=== PATIENT | female | born 2000 | race Two or more races ===

== ENCOUNTER 2022-01-15 06:48 | Inpatient (IN) | payer BC, MEDICAID ==
[~2022-01-15] VITALS: Ht 167.6 cm; Wt 59.4 kg
[2022-01-15 07:22] LABS: BASOPHILS % (AUTO) 0.7 % (0.0-2.0); EOSINOPHILS % (AUTO) 1.1 % (1.0-6.0); HEMATOCRIT 32.7 % (36-46); HEMOGLOBIN 10.9 g/dL (12.0-16.0); LYMPHOCYTES # (AUTO) 1.7 K/uL (1.0-4.8); LYMPHOCYTES % (AUTO) 20.1 % (22.0-44.0); MEAN CORPUSCULAR HEMOGLOBIN 24.7 pg (26.0-34.0); MEAN CORPUSCULAR HGB CONC 33.2 G/dL (31.0-37.0); MEAN CORPUSCULAR VOLUME 74 fL (80-100); MONOCYTES # (AUTO) 0.5 K/uL (0.1-1.0); MONOCYTES % (AUTO) 6.3 % (2.0-9.0); NEUTROPHILS # (AUTO) 6.2 K/uL (1.8-7.7); NEUTROPHILS % (AUTO) 71.8 % (40.0-70.0); PLATELET COUNT (AUTO) 299 K/uL (150-450); RED CELL DISTRIBUTION WIDTH 15.4 % (11.5-14.5)
[2022-01-15 07:41] LABS: ANION GAP 7 mmol/L (8-16); CALCIUM, TOTAL 8.9 mg/dL (8.8-10.5); CARBON DIOXIDE 25 mmol/L (22-29); CHLORIDE 107 mmol/L (98-107); CREATININE 0.74 mg/dL (0.60-1.30); GLOMERULAR FILTR. RATE CALC > 60 mL/min (>60); GLUCOSE,RANDOM 98 mg/dL (70-110); POTASSIUM 3.7 mmol/L (3.5-5.1); SODIUM SERUM 139 mmol/L (136-145); UREA NITROGEN, BLOOD 10 mg/dL (7-18)
[2022-01-15 07:45] LABS: ALANINE AMINOTRANSFERASE 16 U/L (12-78); ALBUMIN 3.7 g/dL (3.4-5.0); ALKALINE PHOSPHATASE 85 U/L (46-116); ASPARTATE AMINOTRANSFERASE 14 U/L (15-37); TOTAL PROTEIN, SERUM 7.2 g/dL (6.4-8.2)
[2022-01-15 07:50] LABS: COVID AG,FIA SOURCE NASAL SWAB
[2022-01-15 07:53] LABS: SALICYLATE < 0.2 mg/dL (2.8-20.0)
[2022-01-15 07:53] LABS: AMPHET/METH SCREEN,URINE NEGATIVE (NEGATIVE); BARBITURATE SCREEN, URINE NEGATIVE (NEGATIVE); BENZODIAZEPINES SCREEN,URINE NEGATIVE (NEGATIVE); CANNABINOID SCREEN,URINE NEGATIVE (NEGATIVE); COCAINE SCREEN,URINE NEGATIVE (NEGATIVE); METHADONE SCREEN, URINE NEGATIVE (NEGATIVE); OPIATE SCREEN,URINE NEGATIVE (NEGATIVE)
[2022-01-15 07:55] LABS: PHENCYCLIDINE SCREEN,URINE NEGATIVE (NEGATIVE)
[2022-01-15 07:57] LABS: ACETAMINOPHEN < 2 mcg/mL (10-30)
[2022-01-15] MEDS ORDERED: ACETAMINOPHEN 500 MG TABLET PO ONE (08:30)
[2022-01-15] MEDS ORDERED: ONDANSETRON HCL 4 MG TABLET PO ONE (08:30)
[2022-01-15] MEDS ORDERED: HALOPERIDOL 5 MG TABLET PO PRN (11:15)
[2022-01-15 13:35] VITALS: BP 121/70
[2022-01-15] MEDS ORDERED: PNEUMOCOCCAL VACCINE POLYVALENT 0.5 ML VIAL [PPSV23] IM. ONE (14:30)
[2022-01-15] MEDS: ARIPiprazole 5 MG TABLET PO SCH (14:43)
[2022-01-15 16:07] VITALS: BP 122/76
[2022-01-15] MEDS: ZOLPIDEM TARTRATE 10 MG TABLET PO PRN (21:05)
[2022-01-16] MEDS ORDERED: IBUPROFEN 400 MG TABLET PO PRN (06:30)
[2022-01-16] MEDS ORDERED: ALBUTEROL SULFATE HFA 90 MCG/PUFF 8 GM INHALER IH PRN (06:30)
[2022-01-16] MEDS ORDERED: MAGNESIUM HYDROXIDE SUSPENSION 30 ML UDCUP PO PRN (06:30)
[2022-01-16] MEDS ORDERED: CloNIDine HCL 0.1 MG TABLET PO PRN (06:30)
[2022-01-16] MEDS ORDERED: MAG HYDROX/AL HYDROX/SIMETH ES 30 ML SUSPENSION UDCUP PO PRN (06:30)
[2022-01-16] MEDS ORDERED: PETROLATUM,WHITE 28 GM JELLY TP PRN (06:30)
[2022-01-16] MEDS ORDERED: LOPERAMIDE HCL 2 MG CAPSULE PO PRN (06:30)
[2022-01-16] MEDS ORDERED: NICOTINE 14 MG/24 HOUR PATCH TD PRN (06:30)
[2022-01-16] MEDS ORDERED: ACETAMINOPHEN 325 MG TABLET PO PRN (06:30)
[2022-01-16] MEDS ORDERED: DOCUSATE SODIUM 100 MG CAPSULE PO PRN (06:30)
[2022-01-16] MEDS ORDERED: ONDANSETRON HCL 4 MG TABLET PO PRN (06:30)
[2022-01-16] MEDS ORDERED: GuaiFENesin/D-METHORPHAN [SUGAR-FREE] 200-20MG/10 ML SYRUP UDCUP PO PRN (06:30)
[2022-01-16 08:00] VITALS: BP 122/76
[2022-01-16] MEDS: ARIPiprazole 5 MG TABLET PO SCH (09:53)
[2022-01-16] MEDS: FAMOTIDINE 20 MG TABLET PO SCH ×2 (09:53→17:00)
[2022-01-16 17:03] VITALS: BP 121/82
[2022-01-16] MEDS: ZOLPIDEM TARTRATE 10 MG TABLET PO PRN (21:15)
[2022-01-17] MEDS: LORazepam 2 MG TABLET PO PRN (02:58)
[2022-01-17 08:34] VITALS: BP 129/64
[2022-01-17] MEDS: FAMOTIDINE 20 MG TABLET PO SCH ×2 (10:21→16:40)
[2022-01-17] MEDS: ARIPiprazole 5 MG TABLET PO SCH (10:21)
[2022-01-17 16:29] VITALS: BP 103/65
[2022-01-17] MEDS: ZOLPIDEM TARTRATE 10 MG TABLET PO PRN (21:02)
[2022-01-18 02:42] VITALS: BP 111/68
[2022-01-18] MEDS: LORazepam 2 MG TABLET PO PRN (02:45)
[2022-01-18 04:33] VITALS: BP 136/74
[2022-01-18 08:00] VITALS: BP 136/86
[2022-01-18] MEDS: FAMOTIDINE 20 MG TABLET PO SCH (08:53)
[2022-01-18] MEDS: ARIPiprazole 5 MG TABLET PO SCH (08:53)
[2022-01-18] MEDS ORDERED: FAMO20 PO (11:51)
[2022-01-18] MEDS ORDERED: ARIP5TAB37 PO (11:51)
== END 2022-01-18 15:18 | disposition home or self-care (01) | DRG 885 ==
LOC: EMS 06:49 → 3EC 11:11
PROVIDERS: ADMIT Psychiatry & Neurology Psychiatry; ATTEND Psychiatry & Neurology Psychiatry
DX: F33.2 Major depressive disorder, recurrent severe without psychotic features (principal); T43.212A Poisoning by selective serotonin and norepinephrine reuptake inhibitors, intentional self-harm, initial encounter; Z93.3 Colostomy status; R45.851 Suicidal ideations; F43.10 Post-traumatic stress disorder, unspecified; F44.81 Dissociative identity disorder; F60.3 Borderline personality disorder; F90.9 Attention-deficit hyperactivity disorder, unspecified type; G47.00 Insomnia, unspecified; S61.512A Laceration without foreign body of left wrist, initial encounter; X78.9XXA Intentional self-harm by unspecified sharp object, initial encounter; K21.9 Gastro-esophageal reflux disease without esophagitis; D64.9 Anemia, unspecified; Z20.822 Contact with and (suspected) exposure to COVID-19; Z91.51 Personal history of suicidal behavior; Z79.899 Other long term (current) drug therapy; Z87.19 Personal history of other diseases of the digestive system; Z90.49 Acquired absence of other specified parts of digestive tract; Y92.89 Other specified places as the place of occurrence of the external cause; Z28.9 Immunization not carried out for unspecified reason; Y93.89 Activity, other specified; Y99.8 Other external cause status
CPT/HCPCS: 80053; 84703; 85025; 93005; 99291; G0480; G0481; Q0162